=== PATIENT | female | born 1960 | race Caucasian/White ===

== ENCOUNTER 2016-10-21 01:42 | Emergency (ER) | payer BC ==
[~2016-10-21] VITALS: Ht 160 cm; Wt 74.0 kg
[~2016-10-21 01:42] MED LIST: LISI-313 PO; LISI20TA11 PO; LORA-396 PO; MTF1000T PO
[2016-10-21 01:50] VITALS: Ht 160 cm; Wt 74.0 kg
[2016-10-21] MEDS ORDERED: LORAZEPAM 1 MG TAB PO ONE (03:00)
[2016-10-21] MEDS ORDERED: CYCL-319 PO (03:44)
[2016-10-21] MEDS ORDERED: LORA1TAB PO (03:44)
[2016-10-21] MEDS ORDERED: NAPR-260 PO (03:44)
--- NOTE | 2016-10-21 03:51 | ERD ---
ER Documentation Chief Complaint Date/Time DATE: 10/21/16 TIME: 03:48 Chief Complaint anxiety attack at 0100, pain left posterior shoulder, HTN HPI Patient is a 56-year-old female who has a history of anxiety complaining of having anxiety attack that occurred at about 1 AM this morning. She states she was lying in bed and then she felt very stressed out and began to feel very anxious. She states she has had anxiety attacks in the past and this feels the same. She took paroxetine which did not help. She denies any chest pain or shortness of breath. She also admits to waking up with left-sided neck pain. Denies any trauma. Denies fever. Denies any nausea or vomiting. Pain is mild to moderate and worse with movement. ROS All systems reviewed and are negative except as per history of present illness. Medications Home Meds Active Scripts Naproxen* (Naprosyn*) 500 Mg Tablet, 500 MG PO BID Y for PAIN AND/OR INFLAMMATION, #30 TAB Prov:ELOISA FERRO PA-C 10/21/16 Cyclobenzaprine Hcl* (Cyclobenzaprine Hcl*) 10 Mg Tablet, 10 MG PO QHS Y for MUSCLE SPASMS, #20 TAB Prov:ELOISA FERRO PA-C 10/21/16 Lorazepam* (Lorazepam*) 1 Mg Tablet, 1 MG PO Q8, #10 TAB Prov:ELOISA FERRO PA-C 10/21/16 Metformin* (Glucophage*) 1,000 Mg Tablet, 1000 MG PO DAILY, #30 TAB Prov:MARIANNA KINSEY MD 05/08/16 Lisinopril* (Lisinopril*) 20 Mg Tablet, 20 MG PO DAILY, #30 TAB Prov:MARIANNA KINSEY MD 05/08/16 Reported Medications Lorazepam* (Ativan*) 0.5 Mg Tablet, 0.5 MG PO daily 07/03/12 Lisinopril* (Lisinopril*) 5 Mg Tablet, 5 MG PO daily 07/03/12 Allergies Allergies: Coded Allergies: No Known Allergies (Verified Allergy, Mild, 12/27/13) PMhx/Soc Medical and Surgical Hx: pt denies Medical Hx, pt denies Surgical Hx History of Surgery: Yes (C-SEC ) Anesthesia Reaction: No Hx Neurological Disorder: No Hx Respiratory Disorders: No Hx Cardiac Disorders: No Hx Psychiatric Problems: Yes (ANXIETY) Hx Miscellaneous Medical Probl: No Hx Alcohol Use: No Hx Substance Use: No Hx Tobacco Use: No Smoking Status: Never smoker FmHx Family History: diabetes Physical Exam Vitals Vital Signs Date Time Temp Pulse Resp B/P Pulse Ox O2 Delivery O2 Flow Rate FiO2 10/21/16 01:50 97.8 101 20 178/81 99 Physical Exam General: well developed, well nourished, alert, nontoxic, no distress Head: normocephalic, atraumatic Neck: Supple, nontender, no lymphadenopathy, no midline tenderness Respiratory: Clear to auscaultation bilaterally, speaks in full sentences, no use of accesory muscles or labored breathing, no rales, ronchi, or wheezing Cardiovascular: RRR, No murmurs GI: soft, non tender, non distended, negative murphys sign, negative mcburneys point tenderness, no cva tenderness bilaterally, no rebound or guarding Back: no midline tenderness, no step offs or bony abnormalities, sensation to light touch in tact Results 24 hrs Current Medications Medications (Trade) Dose Ordered Sig/Glynn Route PRN Reason Start Time Stop Time Status Last Admin Dose Admin Lorazepam (Ativan) 1 mg ONCE ONCE PO 10/21/16 03:00 10/21/16 03:01 DC 10/21/16 03:06 Procedures/MDM Patient presents after having anxiety attack earlier today. She has had this in the past and states it feels the same. She denies any chest pain or shortness of breath. Patient's blood pressure was elevated (>120/80) but appears stable without evidence of hypertension emergency or urgency. The patient was counseled about the risks of hypertension and urged to pursue outpatient monitoring and therapy within a week with their primary care physician. EKG was ordered which was in normal sinus rhythm with no evidence of ST elevation or acute ischemic changes with normal axis as read by my supervising physician Dr. Lozano. Patient was given a dose of Ativan here in the emergency room and she was observed for approximately 30-45 minutes at which point I reevaluated her and she stated she felt much better. She was discharged with a small amount of Ativan as well as naproxen and Flexeril for her neck strain. There is no injury or trauma that warrants imaging. Furthermore there is no fever or vomiting concerning for meningitis. She is ranging her neck appropriately without any limitations. She also believes that this may be related to stress and I agree however as stated I did also discharge her with anti-inflammatories and Flexeril. Recommended this patient follow up with her primary care doctor within 48 hours or return to the emergency room for any worsening of symptoms. However this time I do believe there is suitable for outpatient management. I answered all their questions and they agreed with the plan and were discharged home. Departure Diagnosis: Primary Impression: Anxiety attack Condition: Stable Patient Instructions: Anxiety Reaction Additional Instructions: Call your primary care doctor TOMORROW for an appointment during the next 1-2 days.See the doctor sooner or return here if your condition worsens before your appointment time. ELOISA FERRO PA-C Oct 21, 2016 03:51
[2016-10-21 03:52] VITALS: BP 170/72; PULSE 66; RESP 18; TEMP 98
== END 2016-10-21 03:57 | disposition home or self-care (01) ==
LOC: FTE 01:42
DX: F41.0 Panic disorder [episodic paroxysmal anxiety] (principal); I10 Essential (primary) hypertension
CPT/HCPCS: 93005

== ENCOUNTER 2017-10-31 05:08 | Emergency (ER) | END 2017-10-31 10:45 | disposition home or self-care (01) ==

== ENCOUNTER → 2019-06-12 | Outpatient (CLI) | payer BC ==
[~2019-06-12] MED LIST changes: +CYCL10TA7 PO; +LISI-471 PO; -LISI20TA11 PO; +LORA1TAB PO; +MECL-77 PO; +NAPR-985 PO; +ONDA8TAB14 PO
== END | disposition home or self-care (01) ==
LOC: RAD 11:40
PROVIDERS: ATTEND Internal Medicine
DX: M25.571 Pain in right ankle and joints of right foot (principal)
CPT/HCPCS: 73650

== ENCOUNTER 2019-07-09 05:14 | Emergency (ER) | payer BC ==
[~2019-07-09] VITALS: Ht 154.9 cm; Wt 68.2 kg
[~2019-07-09 05:14] MED LIST changes: +LEVO25TA6 PO; +METF100010 PO; +PARO10TA76 PO
[2019-07-09 05:16] VITALS: Ht 154.9 cm; Wt 68.2 kg
[2019-07-09] MEDS ORDERED: ASPIRIN 81 MG TAB PO STA (06:30)
[2019-07-09] MEDS ORDERED: NITROGLYCERIN (SL) 0.4 MG TAB SL PRN (06:30)
[2019-07-09] MEDS ORDERED: NITROGLYCERIN 2% 1 GM OINT PKT TD STA (06:30)
[2019-07-09] MEDS ORDERED: ACETAMINOPHEN 325 MG TAB PO PRN (07:30)
[2019-07-09] MEDS ORDERED: ONDANSETRON 4 MG INJ IV PRN (07:30)
[2019-07-09 07:53] VITALS: BP 129/76; PULSE 71; RESP 16
== END 2019-07-09 08:20 | disposition home or self-care (01) ==
LOC: E/R 05:14
DX: R07.89 Other chest pain (principal); I10 Essential (primary) hypertension; E11.9 Type 2 diabetes mellitus without complications; E03.9 Hypothyroidism, unspecified; Z79.84 Long term (current) use of oral hypoglycemic drugs
CPT/HCPCS: 36415; 71045; 80048; 83880; 84484; 85025; 85610; 93005